=== PATIENT | male | born 1980 | race Caucasian/White ===

== ENCOUNTER 2019-02-24 22:53 | Emergency (ER) | payer BC, OTHER ==
[~2019-02-24] VITALS: Ht 172.7 cm; Wt 93.0 kg
[2019-02-24] MEDS ORDERED: LISINOPRIL2.5 MG PO (23:03)
[2019-02-24] MEDS ORDERED: RIFADIN150 MG PO (23:04)
[2019-02-24] MEDS ORDERED: OXYCODONE-APAP1 EAC6 PO (23:26)
[2019-02-24 23:59] VITALS: BP 132/91
== END 2019-02-25 00:01 | disposition home or self-care (01) ==
LOC: M.ERS 22:53
DX: S05.02XA Injury of conjunctiva and corneal abrasion without foreign body, left eye, initial encounter (principal); H11.9 Unspecified disorder of conjunctiva; I10 Essential (primary) hypertension; Z88.0 Allergy status to penicillin; X58.XXXA Exposure to other specified factors, initial encounter; Y93.89 Activity, other specified; Y92.89 Other specified places as the place of occurrence of the external cause; Y99.8 Other external cause status

== ENCOUNTER 2020-02-05 19:00 | Emergency (ER) | payer BC, OTHER ==
[~2020-02-05] VITALS: Ht 172.7 cm; Wt 99.8 kg
[~2020-02-05 19:00] MED LIST: LISINOPRIL2.5 MG PO; OXYCODONE-APAP1 EAC6 PO; RIFADIN150 MG PO
[2020-02-05] MEDS ORDERED: MELOXICAM7.5 MG PO (19:09)
[2020-02-05] MEDS ORDERED: TYLENOL WITH CO1 TA1 PO (19:57)
[2020-02-05] MEDS ORDERED: IBUPROFEN 800800 MG PO (19:57)
[2020-02-05 20:14] VITALS: BP 161/87
== END 2020-02-05 20:15 | disposition home or self-care (01) ==
LOC: M.ERS 19:00
DX: S93.491A Sprain of other ligament of right ankle, initial encounter (principal); I10 Essential (primary) hypertension; Z88.0 Allergy status to penicillin; W18.39XA Other fall on same level, initial encounter; Y93.89 Activity, other specified; Y92.89 Other specified places as the place of occurrence of the external cause; Y99.8 Other external cause status